=== PATIENT | female | born 1980 | race Caucasian/White ===

== ENCOUNTER → 2017-02-05 | Outpatient (CLI) | payer OTHER ==
[~2017-02-05] MED LIST: PERCOCET 10-321 EACH PO
== END ==
LOC: OPSV2 09:00
DX: Z01.812 Encounter for preprocedural laboratory examination (principal); Z47.2 Encounter for removal of internal fixation device

== ENCOUNTER → 2017-02-18 | Day surgery (SDC) | payer OTHER ==
[~2017-02-18] VITALS: Ht 174 cm; Wt 49.9 kg
== END | disposition home or self-care (01) ==
LOC: OR 09:16
PROVIDERS: Orthopaedic Surgery
PROC: 0RPK04Z Removal of Internal Fixation Device from Left Shoulder Joint, Open Approach (ICD-10-PCS; principal; 2017-02-18 13:00)
DX: T84.84XA Pain due to internal orthopedic prosthetic devices, implants and grafts, initial encounter (principal); S42.032D Displaced fracture of lateral end of left clavicle, subsequent encounter for fracture with routine healing; G56.22 Lesion of ulnar nerve, left upper limb; F17.210 Nicotine dependence, cigarettes, uncomplicated; Z79.899 Other long term (current) drug therapy; Z98.818 Other dental procedure status; X58.XXXD Exposure to other specified factors, subsequent encounter
CPT/HCPCS: 84703; J1100; J2405; J3010; J7030; J7120